=== PATIENT | male | born 1960 | race Caucasian/White ===

== ENCOUNTER → 2017-03-19 16:43 | Outpatient (CLI) | payer BC, SELFPAY ==
--- NOTE | 2017-03-19 16:49 | CT_ITS ---
STUDY: CT ABDOMEN AND PELVIS WITH CONTRAST REASON FOR EXAM: Male, 56 years old. LLQ pain, diverticulitis with antibiotics, ? Abscess RADIATION DOSAGE (If Supplied By Facility): CTDIvol = ( 17.24 ) mGy, DLP = ( 1178.76 ) mGycm TECHNIQUE: Transaxial images were obtained from the dome of the diaphragm to the symphysis pubis without oral contrast. 100ml ml of Isovue 300 contrast was administered. Sagittal and coronal images were reconstructed. Individualized dose optimization techniques were used for this CT. COMPARISON: 02.05.17 FINDINGS: The visualized lung bases are unremarkable. The visualized portions of the heart are within normal limits. Normal liver. Normal gallbladder and extrahepatic biliary system. Normal spleen. Normal pancreas. Normal bilateral adrenal glands. Normal right kidney. Normal left kidney. Normal visualized stomach. Normal small intestine. Stool throughout the colon. The appendix is visualized and appears normal. There are multiple diverticuli of the colon. There is diverticulosis but no radiographic signs for diverticulitis. There is diffuse atherosclerotic calcification of the abdominal aorta, without a demonstrated aneurysm. Normal inferior vena cava. Normal retroperitoneum. Normal urinary bladder. Normal visualized prostate gland. Normal abdominal wall. Normal osseous structures. CT/Abdomen/Pelvis WITH Contrast IMPRESSION: There are multiple diverticuli of the colon. There is diverticulosis but no radiographic signs for diverticulitis. There are calcifications of the abdominal aorta. This is consistent for atherosclerotic disease. There is no abdominal aortic aneurysm. Electronically Signed: Pietro Colón MD at 18:03 EST , Service support ,
== END ==
PROVIDERS: Family Provider Family Medicine; PCP Family Medicine; Visit Provider Family Medicine
DX: K57.92 Diverticulitis of intestine, part unspecified, without perforation or abscess without bleeding (principal)
CPT/HCPCS: 74177

== ENCOUNTER → 2018-05-26 06:49 | Outpatient (CLI) | payer BC, SELFPAY ==
[2018-05-19 13:06] VITALS: BMI 32.2
[2018-05-26 08:37] LABS: AST(SGOT) 24 U/L (15-37); Alanine Aminotransfer ALT/SGPT 30 U/L (16-61); Albumin, Serum 3.8 g/dL (3.2-5.0); Alkaline Phosphatase 84 U/L (45-117); Bilirubin, Direct 0.15 mg/dL (0.00-0.30); Cholesterol 176 mg/dL (200); Globulin 3.2 g/dL (2.2-4.2); High Density Lipoprotein 42 mg/dL; Triglycerides 122 mg/dL; Very Low Density Lipoprotein 24 mg/dL (5-40)
== END ==
PROVIDERS: Family Provider Family Medicine; PCP Family Medicine; Referring Provider Internal Medicine Cardiovascular Disease; Visit Provider Internal Medicine Cardiovascular Disease
DX: E78.00 Pure hypercholesterolemia, unspecified (principal)
CPT/HCPCS: 36415; 80061; 80076

== ENCOUNTER 2018-05-26 16:43 | Emergency (ER) | payer BC, SELFPAY ==
[2018-05-19 13:06] VITALS: BMI 32.2
[2018-05-26 16:43] VITALS: BP 125/78; PULSE 52; RESP 14; TEMP 36.9; O2SAT 98; BMI 33.0
--- NOTE | 2018-05-26 17:08 | CT_ITS ---
STUDY: CT ABDOMEN AND PELVIS WITHOUT CONTRAST REASON FOR EXAM: Male, 57 years old. Right abdominal pain, history of hypertension RADIATION DOSAGE (If Supplied By Facility): CTDIvol = ( 13.80 ) mGy, DLP = ( 806.92 ) mGycm TECHNIQUE: Transaxial images were obtained from the dome of the diaphragm to the symphysis pubis without oral contrast, and without intravenous contrast. Sagittal and coronal images were reconstructed. Individualized dose optimization techniques were used for this CT. COMPARISON: None. FINDINGS: This is a limited non-IV, nonoral contrast study. The visualized lung bases are unremarkable. The visualized portions of the heart are within normal limits. Normal liver. Normal gallbladder and extrahepatic biliary system. Normal spleen. Normal pancreas. Normal bilateral adrenal glands. Normal right kidney. Normal left kidney. Normal visualized stomach. Normal small intestine. There are multiple colonic diverticula. There is no evidence for colonic diverticulitis. There is scattered moderate colonic fecal load. The appendix is visualized and appears normal. Normal abdominal aorta. Normal inferior vena cava. Normal retroperitoneum. There are stable multilevel degenerative changes of the lumbar spine. There are stable benign bone islands within the hips.. There are Stable multilevel degenerative changes lumbar spine. There is mild distention of the bladder. 2 mm calculus within the base of the bladder. Normal abdominal wall. There are multilevel degenerative changes thoracic and lumbar spine. Surgical clips within the scrotal region. CT/Abdomen/Pelvis without Cont IMPRESSION: Limited non-IV, nonoral contrast study Mild distended bladder, 2 mm calculus within the base of the bladder most likely from recently passed ureteral calculus, primary bladder calculus is unlikely. There is no renal or ureteral calculi. There is no hydronephrosis Colonic diverticulosis, no evidence for diverticulitis. Multilevel spondylosis lumbar spine Surgical clips within the scrotal region Electronically Signed: Vazquez Daniel, at 18:08 EDT Tel , Service support ,
--- NOTE | 2018-05-26 17:09 | ED.VISSUMM ---
- ER Visit Summary Date of Service: 05/26/18 Chief Complaint: Right lower back pain History of Present Illness: The patient is a 57 M who had sudden onset of right lower back pain. He was out shopping when this pain started. It radiated to the right groin and right testicle. He states the pain is subsided but he still feels it in the right testicular area. He denies any trauma. He took no medications for this. He did feel slightly nauseous. He has no history of kidney stones in the past. He denies any urinary symptoms. He does have a history of prior back pain. Physical Examination: Vital signs reviewed. HEENT exam unremarkable. Heart is regular rate and rhythm without murmurs. Lungs are clear to auscultation. Abdomen is soft and nontender. His back is mildly tender in the right lumbar area. Extremities reveal no edema. Skin exam normal. Neurologic exam normal. Test Results: Urinalysis has trace blood. CT scan reveals a 2 mm kidney stone in the bladder Emergency Department Course and Treatment: Patient was able to urinate the stone out after being given Toradol. He states he feels much better without any symptoms. Patient will be discharged use NSAIDs for pain at home. He will follow-up with his PCP Treatment Plan: [] Disposition: Discharge Impression: Kidney stone, passed This note was generated with [employer] dictation software. It may contain incorrect words, spelling, and punctuation that were not noted in review of the chart prior to signing ED Disposition - Plan for ED Patient: Referrals: Gavin Pisano MD [Primary Care Provider] -
[2018-05-26] MEDS: Ketorolac 30 MG/ML Syringe IV (17:21)
--- NOTE | 2018-05-26 17:30 | ED.RN ---
PT ATTEMPTED TO URINATE WITHOUT RESULTS. GIVEN WATER. PT REPORTS PAIN IS GREATLY IMPROVED AFTER TORADOL
[2018-05-26 17:58] VITALS: BP 122/74; PULSE 73; RESP 14; O2SAT 97
[2018-05-26 18:22] LABS: Bacteria 0 SEEN /hpf (None Seen); Squamous Epithelial Cells - UA 0 SEEN /hpf (0-5)
[2018-05-26 18:40] LABS: Color, Urine Yellow (Yellow); Glucose, Dipstick Normal (Normal); Ketone-Dipstick Negative (Negative); Leukocyte Esterase-Dipstick Negative /ul (Negative); Nitrite-Dipstick Negative (Negative); Occult Blood-Urine 50 /ul (Negative); Protein-Dipstick 15 mg/dl (Negative); Specific Gravity, Urine 1.025 (1.002-1.030); Urine Bilirubin Dipstick Negative (Negative); Urine Clarity Clear (Clear); Urine Urobilinogen 1 mg/dl (Normal)
--- NOTE | 2018-05-26 18:48 | ED.DEP ---
ED Disposition - Plan for ED Patient: Disposition: Home or Assisted Living Instructions: ED Stone Renal Passed Referrals: Gavin Pisano MD [Primary Care Provider] -
[2018-05-26 19:11] VITALS: BP 175/88; PULSE 54; RESP 18; O2SAT 97
[2018-05-26 19:29] LABS: Mucous, Urine RARE /hpf (<or=2+); Red Blood Cells-Urine 5-10 SEEN /hpf (0-5)
== END 2018-05-26 19:12 | disposition home or self-care (01) ==
PROVIDERS: Emergency Provider Emergency Medicine; Family Provider Family Medicine; PCP Family Medicine
DX: N20.0 Calculus of kidney (principal); I10 Essential (primary) hypertension; Z79.82 Long term (current) use of aspirin; Z79.899 Other long term (current) drug therapy
CPT/HCPCS: 74176; 81001; 96374; 99282; A4216

== ENCOUNTER → 2018-06-08 06:34 | Outpatient (CLI) | payer BC, SELFPAY ==
[2018-05-19 13:06] VITALS: BMI 32.2
[2018-05-26 16:43] VITALS: BMI 33.0
--- NOTE | 2018-06-08 06:38 | ECHOCS_ITS ---
Reason For Study: MURMUR Procedure This was a 2D Doppler, Color Flow transthoracic echocardiogram. The study was technically difficult. Contrast injection was performed. Exam performed in department. Left Ventricle Normal LV size. Left ventricular systolic function is normal. The estimated ejection fraction is 60 %. No evidence for diastolic dysfunction. No regional wall motion abnormalities noted. Right Ventricle Normal RV size. Normal systolic function. Atria The left atrium is mildly enlarged. Normal right atrium. No doppler evidence for ASD. Bubble contrast study negative for right to left interatrial shunt. Mitral Valve There is mild mitral annular calcification. Anterior leaflet diffuse mitral valve thickening. Trivial mitral valve insufficiency. Tricuspid Valve Normal tricuspid valve. Mild tricuspid valve insufficiency. Right ventricular systolic pressure estimated to be 27 mmHg. Aortic Valve Trisinus/trileaflet aortic valve. Mild focal aortic valve calcification. Mild aortic stenosis. Pulmonic Valve The pulmonic valve is not well visualized. Trivial pulmonic valve insufficiency. Great Vessels Normal sized aortic root. Pericardium/Pleural No pericardial effusion. Medication Diluted definity 3.5ml given slow IV push to enhance endocardial definition. Performed a rapid injection of agitated mix of 9 cc saline and 1cc air to assess for atrial septal defect. MMode/2D Measurements & Calculations LVIDd: 5.5 cm IVSd: 0.95 cm LVOT diam: 2.1 cm LVIDs: 3.8 cm LVPWd: 0.98 cm RVDd: 4.5 cm FS: 31.2 % LVOT area: 3.3 cm2 Ao root diam: 3.3 cm LAV(MOD-bp): 60.8 ml LVAd ap4: 41.3 cm2 LAV(MOD-bp) Indexed: 27.4 ml/m2 EDV(MOD-sp4): 155.2 ml LAV(MOD-sp2): 64.0 ml EDV(sp4-el): 161.5 ml LAV(MOD-sp4): 50.0 ml LVAs ap4: 23.4 cm2 ESV(MOD-sp4): 62.7 ml ESV(sp4-el): 64.7 ml EF(MOD-sp4): 59.6 % EF(sp4-el): 59.9 % SV(MOD-sp4): 92.5 ml SV(sp4-el): 96.8 ml LA A4 area: 19.1 cm2 LA dimension(2D): 3.6 cm RA A4 area: 15.7 cm2 Time Measurements MV dec time: 0.23 sec Doppler Measurements & Calculations MV E max scottie: 81.6 cm/sec Lat Peak E' Scottie: 10.7 cm/sec Med Peak E' Scottie: 7.7 cm/sec MV A max scottie: 74.1 cm/sec E/E' lat: 7.6 E/E' med: 10.7 MV E/A: 1.1 Ao V2 max: 274.8 cm/sec AI max scottie: 501.1 cm/sec LV V1 max: 120.9 cm/sec Ao max P.2 mmHg AI max P.4 mmHg LV V1 max P.8 mmHg Ao V2 mean: 191.0 cm/sec AI dec slope: 173.2 cm/sec2 LV V1 mean P.1 mmHg Ao mean P.2 mmHg AI P1/2t: 847.6 msec LV V1 mean: 81.3 cm/sec Ao V2 VTI: 58.2 cm LV V1 VTI: 29.0 cm GINNY(I,D): 1.7 cm2 GINNY(V,D): 1.5 cm2 SV(LVOT): 96.2 ml PA V2 max: 130.1 cm/sec TR max scottie: 243.3 cm/sec TR max P.7 mmHg Interpretation Summary The study was technically difficult. Contrast injection was performed. Left ventricular systolic function is normal. The estimated ejection fraction is 60 %. The left atrium is mildly enlarged. There is mild mitral annular calcification. Anterior leaflet diffuse mitral valve thickening. Trivial mitral valve insufficiency. Mild tricuspid valve insufficiency. Mild aortic stenosis. Trivial pulmonic valve insufficiency. Right ventricular systolic pressure estimated to be 27 mmHg. No evidence for diastolic dysfunction. Ordering Physician: Eugenio Amaro Referring Physician: CHARLY GALLO Performed By: Darline Whyte RDCS
--- NOTE | 2018-06-08 10:17 | STRESSREP ---
Stress Test Report Date: 06-08-18 Procedure: Exercise tolerance test/imaging study Indications: Fatigue; cardiac dysrhythmia/conduction system abnormality Consent: Per the patient Procedure: The patient exercised on a Dylan protocol for 9 minutes completing stage III achieving a peak heart rate of 139 bpm (84 % predicted maximal heart rate) with a peak blood pressure 222/70 mmHg and a peak MET capacity of 10 METs. The baseline ECG demonstrated normal sinus rhythm. The peak exercise ECG demonstrated beat to beat ST segment variability with approximately 1 mm of horizontal/upsloping ST segment depression in leads II, aVF, and V4 through V6 with resolution towards baseline beginning less than 1 minute in recovery. There were rare PVCs during exercise. The functional capacity was considered good. There was no complaint of chest discomfort during exercise or recovery. The examination was discontinued secondary to dyspnea. Impression: 1. Technically adequate (percent predicted maximal heart rate greater than 85%) exercise tolerance test 2. Peak exercise ECG demonstrated [id number] ST segment variability with approximately 1 mm of horizontal/upsloping ST segment depression in leads II, aVF, and V4 through V6 with resolution towards baseline beginning less than 1 minute in recovery 3. There were rare PVCs during exercise 4. Nuclear images pending Myocardial perfusion imaging study: Technique: The patient was injected with 14.5 mCi of technetium 99m Cardiolite and subsequently rest SPECT Cardiolite nuclear imaging was obtained in the horizontal long, vertical long, and short axis views. The patient exercised on a Dylan protocol for 9 minutes completing stage III achieving a peak heart rate of 139 bpm (84 % predicted maximal heart rate) with a peak blood pressure 222/70 mmHg and a peak MET capacity of 10 METs. The patient was injected with 43.8 mCi of technetium 99m Cardiolite and subsequently stress SPECT Cardiolite nuclear imaging was obtained in the horizontal long, vertical long, and short axis views. A gated Cardiolite study at peak stress was obtained. Interpretation: Rest and stress SPECT Cardiolite nuclear imaging status post realignment, normalization, and attenuation correction, demonstrates the appearance of relative uniform tracer uptake and myocardial perfusion appearing within normal limits. There is end systolic thickening and brightening. The gated Cardiolite study demonstrates myocardial thickening and inward wall motion. The reported LVEF is 65 %. Impression: 1. Rest and stress SPECT Cardiolite nuclear imaging demonstrate relative uniform tracer uptake and myocardial perfusion appearing within normal limits. 2. The gated Cardiolite study reports an LVEF of 65 %. This note was generated with [employer] software. It may contain incorrect words, spelling, and punctuation that were not noted in checking the note before signing.
--- NOTE | 2018-06-08 10:21 | STRESSREP_ITS ---
Stress Test Report Date: 06-08-18 Procedure: Exercise tolerance test/imaging study Indications: Fatigue; cardiac dysrhythmia/conduction system abnormality Consent: Per the patient Procedure: The patient exercised on a Dylan protocol for 9 minutes completing stage III achieving a peak heart rate of 139 bpm (84 % predicted maximal heart rate) with a peak blood pressure 222/70 mmHg and a peak MET capacity of 10 METs. The baseline ECG demonstrated normal sinus rhythm. The peak exercise ECG demonstrated beat to beat ST segment variability with approximately 1 mm of horizontal/upsloping ST segment depression in leads II, aVF, and V4 through V6 with resolution towards baseline beginning less than 1 minute in recovery. There were rare PVCs during exercise. The functional capacity was considered good. There was no complaint of chest discomfort during exercise or recovery. The examination was discontinued secondary to dyspnea. Impression: 1. Technically adequate (percent predicted maximal heart rate greater than 85%) exercise tolerance test 2. Peak exercise ECG demonstrated [id number] ST segment variability with approximately 1 mm of horizontal/upsloping ST segment depression in leads II, aVF, and V4 through V6 with resolution towards baseline beginning less than 1 minute in recovery 3. There were rare PVCs during exercise 4. Nuclear images pending Myocardial perfusion imaging study: Technique: The patient was injected with 14.5 mCi of technetium 99m Cardiolite and subsequently rest SPECT Cardiolite nuclear imaging was obtained in the horizontal long, vertical long, and short axis views. The patient exercised on a Dylan protocol for 9 minutes completing stage III achieving a peak heart rate of 139 bpm (84 % predicted maximal heart rate) with a peak blood pressure 222/70 mmHg and a peak MET capacity of 10 METs. The patient was injected with 43.8 mCi of technetium 99m Cardiolite and subsequently stress SPECT Cardiolite nuclear imaging was obtained in the horizontal long, vertical long, and short axis views. A gated Cardiolite study at peak stress was obtained. Interpretation: Rest and stress SPECT Cardiolite nuclear imaging status post realignment, normalization, and attenuation correction, demonstrates the appearance of relative uniform tracer uptake and myocardial perfusion appearing within normal limits. There is end systolic thickening and brightening. The gated Cardiolite study demonstrates myocardial thickening and inward wall motion. The reported LVEF is 65 %. Impression: 1. Rest and stress SPECT Cardiolite nuclear imaging demonstrate relative uniform tracer uptake and myocardial perfusion appearing within normal limits. 2. The gated Cardiolite study reports an LVEF of 65 %. This note was generated with [employer]out Studiosation software. It may contain incorrect words, spelling, and punctuation that were not noted in checking the note before signing.
== END ==
PROVIDERS: Family Provider Family Medicine; PCP Family Medicine; Referring Provider Internal Medicine Cardiovascular Disease; Visit Provider Internal Medicine Cardiovascular Disease
DX: I10 Essential (primary) hypertension (principal); I34.1 Nonrheumatic mitral (valve) prolapse; I35.9 Nonrheumatic aortic valve disorder, unspecified; I44.1 Atrioventricular block, second degree; I49.3 Ventricular premature depolarization; E78.00 Pure hypercholesterolemia, unspecified; R53.83 Other fatigue
CPT/HCPCS: 78452; 93017; 93306; A9500; Q9957; A4216; C8929

== ENCOUNTER → 2019-02-06 08:38 | Outpatient (CLI) | payer BC, SELFPAY ==
--- NOTE | 2019-02-06 08:55 | RAD_ITS ---
STUDY: X-RAY - LUMBAR SPINE REASON FOR EXAM: Male, 58 years old. right hip pain since pt was 19 TECHNIQUE: 5 view(s) of the lumbar spine were obtained. COMPARISON: 04/30/2016 FINDINGS: Normal lumbar lordosis. There is no substantial scoliosis. There is a normal alignment of the vertebrae. Normal vertebral bodies and endplates. Normal disc space heights. The soft tissue structures are unremarkable. RAD/L/S Spine Min 4 Views IMPRESSION: Normal x-ray examination of the lumbar spine. Electronically Signed: Bry Vázquez MD at 13:52 EST Tel , Service support ,
[2019-02-06 10:09] LABS: Absolute Lymphocyte Count 1.25 X10^3/uL (0.83-4.51); Absolute Neutrophil Count 3.1 X10^3/uL (2.0-7.7); Basophil# 0.02 X10^3/uL; Basophil% 0.4 % (0-1); Eosinophil# 0.32 X10^3/uL; Eosinophils% 6.4 % (0-5); Hematocrit 41.9 % (40-54); Hemoglobin 14.2 g/dL (13.0-16.5); Lymphocyte # 1.25 X10^3/ul (4.0); Lymphocyte % 25.1 % (19-41); Mean Corp Hgb Conc 33.9 g/dL (32-36); Mean Corpuscular Hgb 30.5 pg (27.0-32.0); Mean Corpuscular Volume 90.1 fL (80-94); Mean Platelet Vol. 12.2 fl (6.2-12.0); Monocyte# 0.25 X10^3/uL; NRBC Flagged by Analyzer 0 % (0-5); Neutrophil # 3.11 X10^3/uL (2.7-7.7); Neutrophil % 62.5 % (47-70); Platelet Count 185 K/mm3 (150-450); RBC Distribution Width CV 12.1 % (11.6-14.6); RBC Distribution Width SD 39.7 fl (35.1-43.9); Red Blood Count 4.65 M/mm3 (4.6-6.2)
[2019-02-06 10:32] LABS: Ferritin 112 ng/mL (26-388); T4 Free Direct 0.87 ng/dL (0.76-1.46); Thyroid Stim Hormone (TSH) 1.53 uIU/mL (0.358-3.74)
[2019-02-07 14:38] LABS: ANTINUCLEAR ANTIBODIES DIRECT Negative (Negative)
== END ==
PROVIDERS: Family Provider Family Medicine; PCP Family Medicine; Referring Provider Family Medicine; Visit Provider Family Medicine
DX: M54.5 Low back pain (principal); G89.29 Other chronic pain; R19.7 Diarrhea, unspecified
CPT/HCPCS: 36415; 72110; 82728; 84439; 84443; 85025; 86038

== ENCOUNTER → 2019-02-13 08:56 | Outpatient (CLI) | payer BC, SELFPAY ==
--- NOTE | 2019-02-13 09:00 | RAD_ITS ---
HISTORY: right hip pain since he was 19, getting worse ADDITIONAL HISTORY: None provided. TECHNIQUE: Right hip 2 views with AP pelvis Number of images including paperwork: 3 COMPARISON: Lumbar spine 02/06/2019. CT abdomen and pelvis 05/26/2018 FINDINGS: BONES: No acute fracture. JOINTS: No subluxation. Facet degenerative changes at L5-S1. Mild degenerative changes of the sacroiliac joints.. SOFT TISSUES: No distinct foreign body. Scrotal surgical clips. RAD/HIP, UNI W/ Pelvis 2-3 Views IMPRESSION: Degenerative changes without acute osseous abnormality. at 2333 Reported and signed by: Alysa Turner MD Electronically Signed: Alysa Turner MD at 23:33 EST Tel , Service support ,
[2019-02-14 16:21] LABS: Fats, Neutral Normal (.); Fats, Total Normal (.)
== END ==
PROVIDERS: Family Provider Family Medicine; PCP Family Medicine; Referring Provider Family Medicine; Visit Provider Family Medicine
DX: M25.551 Pain in right hip (principal); R19.7 Diarrhea, unspecified
CPT/HCPCS: 73502; 82705; 83986; 87506

== ENCOUNTER 2019-03-22 14:30 | Outpatient (RCR) | payer BC, SELFPAY ==
--- NOTE | 2019-02-28 13:23 | HP.PTEVAL ---
Patient's Visit Information KERRI MARTINEZ is a 58 year old M referred to Physical Therapy by Gavin Pisano MD with a diagnosis of RIGHT HIP PAIN/LBP. Date of Evaluation: 02/27/19 Physical Therapist: Anu Agustin PT, Cert MDT - Visit Plan Frequency: 2-3x /Week Duration: 4-6 Weeks Plan: LOW BACK AND HIP MODALITIES NEEDED. RIGHT HIP AND LE ROM AND FOAM ROLLING INCLUDING INSTRUCTION IN RIGHT HIP IR AND ER STRETCHING TOLERATED. POSTURE CORRECTION/STRENGTHENING, INSTRUCTION IN APPROPRIATE BODY MECHANICS AND ACTIVITY MODIFICATIONS. DLS STARTING WITH A NEUTRAL SPINE PROGRESSING ROM TOLERATED. VINNIE LE ROM, STRETCHING AND STRENGTHENING. HEP INSTRUCTION. 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 HEAVY BENDING, LIFTING AND TWISTING. NOT OFF WORK FOR THIS. Disability: NO. Present symptoms: RIGHT LOW BACK PAIN. RIGHT BUTTOCK, RIGHT THIGH AND TOP OF THE CALF PAIN AND RIGHT ANKLE PAIN. INTERMITTENT RIGHT LE TINGLING. NO FOOT OR TOE SX'S. Present since: CHRONIC. Pain Scale: WORST 7/10, LEAST 2/10. Currently: 4/10. WORSENING. Commenced as a result of: NO APPARENT REASON. Symptoms at onset: RIGHT LOW BACK. Worse: SITTING, LYING DOWN. Better: BEING UP AND MOVING. Disturbed sleep: YES. Previous history/Previous treatment: LONG HISTORY OF CHIROPRACTIC TREATMENTS OFF AND ON NEEDED. NO PHYSICAL THERAPY. NO SURGERY. NO PAIN MGMT OR SILVESTRE'S. Coughing/sneezing/straining: NEGATIVE. Gait: NORMAL. Difficulty initiating urinatin: NO. Accidents: NO. Unexplained weight loss: NO. Imaging: RECENT HIP X-RAY - MINOR OSTEOARTHRITIS. ALSO HAD LOW BACK X-RAY. PMH: UNREMARKABLE. Recent major surgery: VINNIE ROTATOR CUFF REPAIRS. - Objective Sitting/Standing Posture: FAIR. Lordosis: NORMAL. Active Correction of posture: NE. Other Observations: INDEP GAIT AND TRANSFERS. Motor deficit: VINNIE LE'S 5/5 WITH MMT'ING. Sensory deficit: NO. ROM deficit: TIGHT VINNIE HS'S AND GASTROC SOLEUS COMPLEX'S. Dural Signs: NEGATIVE VINNIE LE'S. Lumbar mvmt loss: flex - NIL. ext - MOD. R SG - MOD. L SG - MOD. PATIENT DENIES PAIN WITH LUMBAR ROM TESTING ALL PLANES. Core strength: FAIR. Palpation: NO ACUTE BACK OR HIP TENDERNESS. OTHER: POSITIVE RIGHT ANKIT TESTING. LIMITED RIGHT HIP IR AND ER COMPARED TO LEFT. TREATMENT: NEURO RE-ED - INTRO TO PROPER POSTURE CONTROL, BODY MECHANICS AND APPROPRIATE ACTIVITY MODIFICATIONS. - Goals Goal 1:: DECREASE C/O RIGHT LOW BACK, HIP AND LE SX'S. Goal Time Frame: 4-6 Weeks Goal 2:: IMPROVE SITTING, LYING AND SLEEP FUNCTION Goal Time Frame: 4-6 Weeks Goal 3:: INSTRUCT IN PROPHYLAXIS Goal Time Frame: 4-6 Weeks - Rehabilitation Potential Rehabilitation Potential: Fair - Anticipated Interventions Patient/Client Instruction: Educate patient on: Condition, Plan of Care, Risk Factors, Benefits of Fitness Program For the Purpose of:: To improve self management Therapeutic Exercise to Include: Strength training, Body mechanics, Postural training, Flexibilty training, Neuromotor development, Dynamic Lumbar Stabilization For the Purpose of:: To decrease pain, To increase ROM, To improve muscle performance and motor function, To increase tolerance to activity/condition/position, To improve ability of physical actions for home/community/work/leisure TENS: Yes IF ES: Yes Cryotherapy (ice pack, ice massage): Yes Thermo therapy (hot pack): Yes Ultrasound (thermal/non thermal): Yes For the Purpose of:: To decrease pain, To improve nutrient delivery to tissue Thank you for the opportunity to evaluate your patient. For Medicare and Medicare HMO plans, please review the plan of care and approve it. It will need to be FAXED BACK to us at [phone] for Medicare purposes. For Medicare only, by signing this I certify the plan of care. Please let me know if there are questions or concerns regarding this plan of care. Physician Signature: Date:
--- NOTE | 2019-03-22 15:55 | HP.PTDCSUM ---
HP - PT D/C Summary It has been my pleasure to treat KERRI MARTINEZ under orders from Gavin Pisano MD, for the diagnosis of RIGHT HIP PAIN/LBP for a total of 9 visit(s). Discharge Date: Please see the following information for a summary of their discharge status. - Subjective Subjective: PATIENT REPORTS HE IS WORSE. MORE SHARP PAINS DOWN HIS LEG. MORE BACK PAIN. MORE DIFFICULT TO GET COMFORTABLE. USE TO GET RELIEF IN STANDING AND NOW HE DOESN'T. WALKING IS OK. TEMPORARY RELIEF WITH PT TREATMENTS FOR A FEW HOURS. WORSE OVER-ALL. CORE FEELS STRONGER THOUGH. PATIENT REPORTS HE FEELS LIKE HE IS DRAGGING HIS RIGHT LEG SOMETIMES. - Pain Back Pain Intensity (Out of 10): 6 - Overall Improvement % Improvement: 0 - Objective Objective/Function: PATIENT WAS SEEN TODAY FOR RE-ASSESSMENT OF PROGRESS TOWARD THE SET PT GOALS AND THE NEED FOR FURTHER PHYSICAL THERAPY VS READINESS FOR DISCHARGE. PATIENT IS NOT IMPROVING AND ACTUALLY HAVING MORE BACK AND RIGHT LE PAIN. UPON EXAM TODAY: Lumbar mvmt loss: flex - MIN. ext - MOD. R SG - MOD. L SG - MIN. PATIENT C/O INCREASED RIGHT LBP WITH LUMBAR ROM TESTING ALL PLANES ESPECIALLY RIGHT SG. Core strength: FAIR. Palpation: NO ACUTE BACK TENDERNESS. MILD RIGHT LATERAL HIP TENDERNESS. OTHER: POSITIVE RIGHT ANKIT TESTING. LIMITED RIGHT HIP IR AND ER COMPARED TO LEFT. POSITIVE RIGHT LE DURAL TEST. VINNIE LE STRENGTH 5/5 WITH MMT'ING EXCEPT RIGHT HIP 4/5. FURTHER HEP INSTRUCTION GIVEN TODAY FOR GENTLE RIGHT HIP INTERNAL AND EXTERNAL SELF STRETCHING IN SITTING AND SUPINE. WRITTEN HEP PROVIDED. - Goals Goal 1:: DECREASE C/O RIGHT LOW BACK, HIP AND LE SX'S. Goal Progress: Not Progressing Goal 2:: IMPROVE SITTING, LYING AND SLEEP FUNCTION Goal Progress: Not Progressing Goal 3:: INSTRUCT IN PROPHYLAXIS Goal Progress: Not Progressing - Plan Plan: D/C DUE TO LACK OF PROGRESS. REFERRED PATIENT BACK TO HIS PHYSICIAN. PATIENT AGREEABLE. - D/C Information If there are questions or concerns regarding this patient's physical therapy, please feel free to call me at [phone]. Thank you for the referral of this patient. Sincerely, Anu Agustin, PT, Cert MDT
--- NOTE | 2019-04-27 12:25 | HP.PTDCSUM_ITS ---
HP - PT D/C Summary It has been my pleasure to treat KERRI MARTINEZ referred by Gavin Pisano MD, with the diagnosis of RIGHT HIP PAIN/LBP for a total of 10 visit(s). Discharge Date: Please see the following information for a summary of their discharge status. - Subjective Subjective: PATIENT REPORTS THE MRI SHOWED WEAKENING OF THE TENDONS AROUND HIS RIGHT HIP. STATES MRI ALSO SHOWED SLIGHTLY MORE WEIGHT BEARING ON RIGHT LE SO NOW WEARING RIGHT HEEL LIFT STARTING LAST WEDNESDAY WITH BENEFIT. REC'D CORTISONE SHOT RIGHT SI JOINT 2 DAYS AGO 04/25/19 - NO PAIN NOW. 100% IMPROVEMENT COMPARED TO BEFORE THE SHOT. SOME TIGHTNESS BUT NO PAIN DOWN THE BACK OF HIS LEG NOW. PATIENT REPORTS HE RESUMED HIS HEP FROM PT YESTERDAY WITH NO PAIN (TIGHTNESS ONLY). PATIENT REPORTS MORE THERAPY WAS ORDERED LAST MONTH BUT HE WANTED TO HAVE THE INJECTION BEFORE RETURNING TO PT. - Pain Back Pain Intensity (Out of 10): 6 - Overall Improvement % Improvement: 100 - Objective Objective/Function: PATIENT WAS SEEN TODAY FOR RE-ASSESSMENT OF PROGRESS TOWARD THE SET PT GOALS AND THE NEED FOR FURTHER PHYSICAL THERAPY VS READINESS FOR DISCHARGE. UPON EXAM TODAY: ALL GOALS ARE MET. HE HAS HAD NORMALIZATION OF HIS STRENGTH AND ROM SINCE INJECTION AND HE IS INDEP WITH A HEP. UPON EXAM TODAY: Lumbar mvmt loss: flex - NIL. ext - MIN. R SG - MIN. L SG - MIN. PATIENT DENIES PAIN WITH LUMBAR ROM TESTING ALL PLANES. Core strength: FAIR. VINNIE LE STRENGTH 5/5 WITH MMT'ING. VINNIE LE ANKIT AND DURAL TESTS ARE NEGATIVE. PATIENT NOW HAS RIGHT HIP ROM (INCLUDING IR AND ER) WFL AND NO PAIN WITH TESTIN. HE IS INDEP WITH A HEP AND APPROPRIATE FOR DISCHARGE TO HEP AND PHYSICIAN FOLLOW UP NEEDED AT THIS TIME. PATIENT [facility] - Goals Goal 1:: DECREASE C/O RIGHT LOW BACK, HIP AND LE SX'S. Goal Progress: Goal Met Goal 2:: IMPROVE SITTING, LYING AND SLEEP FUNCTION Goal Progress: Goal Met Goal 3:: INSTRUCT IN PROPHYLAXIS Goal Progress: Goal Met - Plan Plan: D/C TO HEP. PATIENT IS AGREEABLE. - D/C Information If there are questions or concerns regarding this patient's physical therapy, please feel free to call me at [phone]. Thank you for the referral of this patient. Sincerely, Anu Agustin, PT, Cert MDT
== END 2019-03-22 19:00 | disposition home or self-care (01) ==
LOC: PT 14:30
PROVIDERS: Family Provider Family Medicine; PCP Family Medicine; Referring Provider Family Medicine; Visit Provider Family Medicine
DX: M25.551 Pain in right hip (principal); M54.5 Low back pain
CPT/HCPCS: 97014; 97110; 97112; 97162; 97164; 97530; G0283

== ENCOUNTER → 2019-04-06 09:19 | Outpatient (CLI) | payer BC, SELFPAY ==
--- NOTE | 2019-04-06 09:27 | MRI_ITS ---
STUDY: MRI RIGHT HIP REASON FOR EXAM: Male, 58 years old. C/O RIGHT HIP/GROIN PAIN RADIATING DOWN LEG TECHNIQUE: Standardized fat and water weighted pulse sequences were obtained in all 3 orthogonal planes. COMPARISON: X-ray 02/13/2019 FINDINGS: Normal hip joint without articular joint space narrowing. Normal acetabulum. Normal labrum. Normal femoral head. Normal femoral neck and intratrochanteric region. Mild gluteal tendinosis and peritendinitis. There is no trochanteric, iliopsoas or iliopectineal bursitis. Normal superior and inferior pubic rami. Normal pubic symphysis. Normal ischial tuberosity. Normal origin of the hamstring tendons. Normal visualized iliac wing, sacroiliac joint, and sacral ala. Normal visualized soft tissue structures of the pelvis. MRI/Lower Ext Joint Only (Routine) IMPRESSION: Mild gluteal tendinosis and peritendinitis. Electronically Signed: Bry Vázquez MD at 14:22 EST Tel , Service support ,
--- NOTE | 2019-04-06 09:27 | MRI_ITS ---
STUDY: MRI LUMBAR SPINE WITHOUT CONTRAST REASON FOR EXAM: Male, 58 years old. DDD, LBP, RIGHT HIP PAIN TECHNIQUE: Standardized fat and water weighted pulse sequences were obtained in the sagittal and axial planes. COMPARISON: X-ray 02/06/2019 FINDINGS: T12-L1: Normal endplates. Normal disc height, hydration and morphology. Normal bilateral facet joints. Normal central canal and bilateral lateral recesses. Normal bilateral intervertebral neural foramina. Normal lumbar lordosis. There is no substantial scoliosis. Normal conus medullaris that terminates at the L1. L1-2: Normal endplates. Normal disc height, hydration and morphology. Normal bilateral facet joints. Normal central canal and bilateral lateral recesses. Normal bilateral intervertebral neural foramina. L2-3: Normal endplates. Normal disc height, hydration and morphology. Normal bilateral facet joints. Normal central canal and bilateral lateral recesses. Normal bilateral intervertebral neural foramina. L3-4: Normal endplates. Normal disc height, hydration and morphology. Normal bilateral facet joints. Normal central canal and bilateral lateral recesses. Normal bilateral intervertebral neural foramina. L4-5: Some disc desiccation but no disc protrusion, spinal stenosis, or neural foraminal stenosis. L5-S1: Normal endplates. Normal disc height, hydration and morphology. Normal bilateral facet joints. Normal central canal and bilateral lateral recesses. Normal bilateral intervertebral neural foramina. Normal visualized sacral ala. Normal visualized paraspinous soft tissue structures. MRI/Spine Lumbar (Routine) IMPRESSION: Normal unenhanced MR examination of the lumbar spine. Electronically Signed: Bry Vázquez MD at 14:24 EST Tel , Service support ,
== END ==
PROVIDERS: PCP Family Medicine; Referring Provider Family Medicine; Visit Provider Family Medicine
DX: M16.11 Unilateral primary osteoarthritis, right hip (principal); M51.36 Other intervertebral disc degeneration, lumbar region
CPT/HCPCS: 72148; 73721

== ENCOUNTER 2019-04-27 11:29 | Outpatient (RCR) | payer BC, SELFPAY ==
[2019-04-14 11:17] VITALS: BMI 33.0
== END 2019-04-27 11:56 | disposition home or self-care (01) ==
LOC: PT 11:29
PROVIDERS: PCP Family Medicine; Referring Provider Orthopaedic Surgery; Visit Provider Orthopaedic Surgery
DX: M46.1 Sacroiliitis, not elsewhere classified (principal); M54.30 Sciatica, unspecified side; M76.01 Gluteal tendinitis, right hip

== ENCOUNTER 2019-06-29 11:30 | Outpatient (RCR) | payer BC, SELFPAY ==
[2019-05-31 14:42] VITALS: BMI 30.7
--- NOTE | 2019-06-20 09:50 | HP.OTEVAL_ITS ---
Patient's Visit Information KERRI MARTINEZ is a 59 year old M, referred to Occupational Therapy by Dr. Gavin Pisano MD, with a diagnosis of Rt carpal tunnel hand weakness. Date of Evaluation: 06/20/19 Occupational Therapist: Valeria Ley - Subjective Pt seen for initial occupational therpay evaluation for R carpal tunnel and hand weakness. Pt states this has been going on for quite a while. He has numbness/tingling in R hand and increased pain with activities. Pt works at [employer]. Pt works doing repetitive work. R hand dominent. Has nerve conduction test scheduled for [facility] in a few weeks. Pt completing all BADLs/IADL tasks and still working but does has increased pain with all movement. States has not tried icing or heat to hand. - Pain R hand 6 Pain Intensity Range: 0, 8 - Objective increased pain with movement R hand/wrist, limited AROM R hand. 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 Pt will progress w/ R tripod pinch strength by 10# to assist w/ BADL/IADL tasks independently by d/c from OT Goal:: Pt will progress w/ AROM R wrist flexion by 10' to increase indep w/ hobbies by d/c from OT services Goal:: Pt will demo no pain greater than 1/10 with movement of R wrist/hand by d/c from OT services Goal:: Pt will be educated on joint protection R wrist/hand with good understanding and demo 100%x Goal:: Pt will be educated on R UE HEP with good understanding and demo 100%x - Rehabilitation General Assessment: Pt seen for initial occupational therapy evaluation for R capral tunnel and hand weakness. Pt states this has been going on for quite a while. He has numbness/tingling in R hand and increased pain with activities. Pt works at [employer]. Pt works doing repetitive work. R hand dominent. Pt demo decreased R hand strength and ROM and increased pain R hand/wrist all indicating a need for skilled OT interventions to increase R hand strength/ROM, decrease pain, educate on joint protection, R UE HEP 1-2x/wk x 4wks Rehabilitation Potential: Good - Anticipated Interventions A/AAROM/PROM, Strengthening, Edema Control, Massage, Triggerpoint Release, Modalities, Orthoses, Joint Protection/Energy Conservation, Ergonomic Education, Education re Diagnosis, Education re Self Massage Techniques, Home Program - Visit Plan Frequency: 1-2x /Week Duration: 4 Weeks General Plan: decrease pain R wrist/hand, increase R hand strength and AROM, educate on HEP and joint protection TEXT: Thank you for the opportunity to evaluate your patient. For Medicare and Medicare HMO plans, please review the plan of care and approve it. It will need to be FAXED BACK to us at [phone] for Medicare purposes. Please let me know if there are questions or concerns regarding this plan of care. Physician Signature: Date:
--- NOTE | 2019-07-04 14:46 | HP.OT.NRP ---
KERRI MARTINEZ was seen in my office for initial evaluation on 06/20/19. The following Plan of Care was established for this patient: Plan: Pt called today states to go ahead and d/c him from therapy as he is going to have sx. Anticipated Interventions: A/AAROM/PROM, Strengthening, Edema Control, Massage, Triggerpoint Release, Modalities, Orthoses, Joint Protection/Energy Conservation, Ergonomic Education, Education re Diagnosis, Education re Self Massage Techniques, Home Program This patient was last seen in our office . Pertinent comments regarding their Occupational therapy will appear below: At this point I will be discontinuing this patient from occupational therapy. I would be happy to see this patient again in the future if found appropriate by the physician. Thank you! Mansi Hernandez, OTR/L, CHT
== END 2019-06-29 19:00 | disposition home or self-care (01) ==
LOC: OT 11:30
PROVIDERS: PCP Family Medicine; Referring Provider Family Medicine; Visit Provider Family Medicine
DX: G56.01 Carpal tunnel syndrome, right upper limb (principal); R29.898 Other symptoms and signs involving the musculoskeletal system
CPT/HCPCS: 97035; 97140; 97165; 97166

== ENCOUNTER → 2019-07-25 07:50 | Outpatient (CLI) | payer BC, SELFPAY ==
[2019-05-31 14:42] VITALS: BMI 30.7
[2019-07-19 10:50] VITALS: BMI 31.1
--- NOTE | 2019-07-25 07:51 | ECHOCS_ITS ---
Reason For Study: ARRHYTHMIA Procedure This was a 2D Doppler, Color Flow transthoracic echocardiogram. The study was technically difficult. Due to body habitus. Contrast injection was performed. Left Ventricle Normal LV size. Left ventricular systolic function is normal. The estimated ejection fraction is 65 %. There is evidence of diastolic dysfunction. No regional wall motion abnormalities noted. Right Ventricle Normal RV size. Normal systolic function. Atria The left atrium is mildly enlarged. Normal right atrium. No doppler evidence for ASD. Mitral Valve There is no mitral annular calcification. Mild focal mitral valve calcification of the anterior leaflet. Trivial mitral valve insufficiency. Tricuspid Valve Normal tricuspid valve. Trivial tricuspid valve insufficiency. Right ventricular systolic pressure estimated to be 23 mmHg. Aortic Valve Trisinus/trileaflet aortic valve. Moderate focal aortic valve calcification. Aortic valve sclerosis/mild aortic valve stenosis. Trivial aortic valve insufficiency. Pulmonic Valve The pulmonic valve is not well visualized. Great Vessels The aortic root is not well visualized. Pericardium/Pleural No pericardial effusion. Medication 22 gauge I.V. with prn adaptor inserted into left arm. Diluted definity 2.0ml given slow IV push to enhance endocardial definition. MMode/2D Measurements & Calculations LVIDd: 4.8 cm IVSd: 1.2 cm LVOT diam: 2.3 cm LVIDs: 3.1 cm LVPWd: 1.2 cm RVDd: 4.2 cm FS: 34.6 % LVOT area: 4.2 cm2 LAV(MOD-bp): 81.0 ml Aortic Valve Planimetry: 2.5 cm2 LA A4 area: 23.6 cm2 LAV(MOD-bp) Indexed: 36.5 ml/m2 LAV(MOD-sp2): 89.5 ml LAV(MOD-sp4): 70.3 ml LA dimension(2D): 4.3 cm RA A4 area: 22.1 cm2 Time Measurements MV dec time: 0.25 sec Doppler Measurements & Calculations MV E max scottie: 83.8 cm/sec Lat Peak E' Scottie: 7.6 cm/sec Med Peak E' Scottie: 5.9 cm/sec MV A max scottie: 95.8 cm/sec E/E' lat: 11.0 E/E' med: 14.2 MV E/A: 0.87 Ao V2 max: 319.8 cm/sec AI max scottie: 506.6 cm/sec LV V1 max: 159.0 cm/sec Ao max P.9 mmHg AI max P.7 mmHg LV V1 max P.1 mmHg Ao V2 mean: 214.2 cm/sec AI dec slope: 186.5 cm/sec2 LV V1 mean P.9 mmHg Ao mean P.0 mmHg AI P1/2t: 795.7 msec LV V1 mean: 115.2 cm/sec Ao V2 VTI: 63.7 cm LV V1 VTI: 36.0 cm GINNY(I,D): 2.4 cm2 GINNY(V,D): 2.1 cm2 SV(LVOT): 152.2 ml PA V2 max: 149.4 cm/sec TR max scottie: 225.7 cm/sec TR max P.4 mmHg Interpretation Summary The study was technically difficult. Contrast injection was performed. Left ventricular systolic function is normal. The estimated ejection fraction is 65 %. The left atrium is mildly enlarged. Mild focal mitral valve calcification of the anterior leaflet. Trivial mitral valve insufficiency. Trivial tricuspid valve insufficiency. Moderate focal aortic valve calcification. Aortic valve sclerosis/mild aortic valve stenosis. Trivial aortic valve insufficiency. Right ventricular systolic pressure estimated to be 23 mmHg. There is evidence of diastolic dysfunction. Ordering Physician: Eugenio Amaro Referring Physician: Gavin Pisano Performed By: Sigrid Beltran, RDCS, RVT
== END ==
PROVIDERS: PCP Family Medicine; Referring Provider Internal Medicine Cardiovascular Disease; Visit Provider Internal Medicine Cardiovascular Disease
DX: I34.1 Nonrheumatic mitral (valve) prolapse (principal); I49.3 Ventricular premature depolarization; I44.1 Atrioventricular block, second degree; I35.9 Nonrheumatic aortic valve disorder, unspecified
CPT/HCPCS: 93306; Q9957; A4216; C8929

== ENCOUNTER → 2020-01-16 | Outpatient (CLI) | payer BC, SELFPAY ==
[2019-09-05 09:03] VITALS: BMI 30.9
== END | disposition home or self-care (01) ==
LOC: LABSPEC 12:08
PROVIDERS: PCP Family Medicine; Referring Provider Family Medicine; Visit Provider Family Medicine
DX: Z20.828 Contact with and (suspected) exposure to other viral communicable diseases (principal)
CPT/HCPCS: 87635; U0003

== ENCOUNTER → 2020-01-29 16:12 | Outpatient (CLI) | payer BC, SELFPAY ==
[2019-09-05 09:03] VITALS: BMI 30.9
[2020-01-29 17:50] LABS: Absolute Lymphocyte Count 2.14 X10^3/uL (0.83-4.51); Absolute Neutrophil Count 3.9 X10^3/uL (2.0-7.7); Basophil# 0.03 X10^3/uL; Basophil% 0.4 % (0-1); Eosinophil# 0.21 X10^3/uL; Eosinophils% 3.1 % (0-5); Hematocrit 42.2 % (40-54); Hemoglobin 14.2 g/dL (13.0-16.5); Lymphocyte # 2.14 X10^3/ul (4.0); Lymphocyte % 31.8 % (19-41); Mean Corp Hgb Conc 33.6 g/dL (32-36); Mean Corpuscular Hgb 30.7 pg (27.0-32.0); Mean Corpuscular Volume 91.3 fL (80-94); Mean Platelet Vol. 12.2 fl (6.2-12.0); Monocyte# 0.41 X10^3/uL; Monocyte% 6.1 % (0-10); NRBC Flagged by Analyzer 0 % (0-5); Neutrophil # 3.93 X10^3/uL (2.7-7.7); Neutrophil % 58.3 % (47-70); Platelet Count 221 K/mm3 (150-450); RBC Distribution Width CV 12.4 % (11.6-14.6); RBC Distribution Width SD 40.8 fl (35.1-43.9); Red Blood Count 4.62 M/mm3 (4.6-6.2); White Blood Count 6.7 K/mm3 (4.4-11.0)
[2020-01-29 18:47] LABS: ALB/GLOB Ratio 1.2 RATIO (0.9-2.4); AST(SGOT) 18 U/L (15-37); Alanine Aminotransfer ALT/SGPT 27 U/L (16-61); Albumin, Serum 3.8 g/dL (3.2-5.0); Alkaline Phosphatase 75 U/L (45-117); Anion Gap 6 (5-15); BUN 22 mg/dL (7-18); BUN/Creat Ratio 20.8 RATIO (10-20); Calcium,Total 8.6 mg/dL (8.5-10.1); Chloride 107 mmol/L (98-107); Creatinine, Serum 1.06 mg/dL (0.70-1.30); EST Glomerular Filtration Rate 76 mL/min (>60); Est Glom Filt Rate - Afr Amer 92 mL/min (>60); Ferritin 124 ng/mL (26-388); Globulin 3.2 g/dL (2.2-4.2); Glucose 85 mg/dL (74-106); Sodium Level 142 mmol/L (136-145); Thyroid Stim Hormone (TSH) 2.79 uIU/mL (0.358-3.74)
== END ==
PROVIDERS: PCP Family Medicine; Referring Provider Family Medicine; Visit Provider Family Medicine
DX: I48.91 Unspecified atrial fibrillation (principal); L50.9 Urticaria, unspecified; G25.81 Restless legs syndrome
CPT/HCPCS: 36415; 80053; 82728; 84443; 85025

== ENCOUNTER → 2020-02-26 15:48 | Outpatient (CLI) | payer BC, SELFPAY ==
[2020-01-31 13:32] VITALS: BMI 31.4
[2020-02-26 18:01] LABS: Absolute Lymphocyte Count 1.85 X10^3/uL (0.83-4.51); Absolute Neutrophil Count 3.5 X10^3/uL (2.0-7.7); Basophil# 0.02 X10^3/uL; Basophil% 0.3 % (0-1); Eosinophil# 0.22 X10^3/uL; Eosinophils% 3.7 % (0-5); Hematocrit 40.4 % (40-54); Hemoglobin 13.8 g/dL (13.0-16.5); Lymphocyte # 1.85 X10^3/ul (4.0); Lymphocyte % 31.2 % (19-41); Mean Corp Hgb Conc 34.2 g/dL (32-36); Mean Corpuscular Hgb 30.3 pg (27.0-32.0); Mean Corpuscular Volume 88.8 fL (80-94); Monocyte# 0.34 X10^3/uL; Monocyte% 5.7 % (0-10); NRBC Flagged by Analyzer 0 % (0-5); Neutrophil # 3.49 X10^3/uL (2.7-7.7); Neutrophil % 58.9 % (47-70); Platelet Count 229 K/mm3 (150-450); RBC Distribution Width CV 12.1 % (11.6-14.6); RBC Distribution Width SD 39.5 fl (35.1-43.9); Red Blood Count 4.55 M/mm3 (4.6-6.2); White Blood Count 5.9 K/mm3 (4.4-11.0)
[2020-02-28 14:42] LABS: ANTINUCLEAR ANTIBODIES DIRECT Negative (Negative)
[2020-03-01 06:08] LABS: Immunoglobulin A 119 mg/dL (90-386); Immunoglobulin E 144 IU/mL (6-495); Immunoglobulin G 956 mg/dL (603-1613); Immunoglobulin M 41 mg/dL (20-172)
[2020-03-01 08:12] LABS: Complement CH50 > 60 U/mL (>41)
== END ==
PROVIDERS: PCP Family Medicine; Referring Provider Family Medicine; Visit Provider Family Medicine
DX: L50.9 Urticaria, unspecified (principal); M25.50 Pain in unspecified joint
CPT/HCPCS: 36415; 82784; 82785; 85025; 86038; 86162; 86225; 86235

== ENCOUNTER → 2020-05-20 15:36 | Outpatient (CLI) | payer BC, SELFPAY ==
[2020-05-20 18:01] LABS: ALB/GLOB Ratio 1.2 RATIO (0.9-2.4); AST(SGOT) 18 U/L (15-37); Alanine Aminotransfer ALT/SGPT 29 U/L (16-61); Albumin, Serum 3.8 g/dL (3.2-5.0); Alkaline Phosphatase 88 U/L (45-117); Anion Gap 2 (5-15); BUN 19 mg/dL (7-18); BUN/Creat Ratio 18.4 RATIO (10-20); Calcium,Total 9.4 mg/dL (8.5-10.1); Chloride 105 mmol/L (98-107); Creatinine, Serum 1.03 mg/dL (0.70-1.30); EST Glomerular Filtration Rate 79 mL/min (>60); Est Glom Filt Rate - Afr Amer 95 mL/min (>60); Globulin 3.2 g/dL (2.2-4.2); Glucose 91 mg/dL (74-106); Potassium 4.3 mmol/L (3.5-5.1); Sodium Level 140 mmol/L (136-145)
== END ==
PROVIDERS: PCP Family Medicine; Visit Provider Family Medicine
DX: I10 Essential (primary) hypertension (principal)
CPT/HCPCS: 36415; 80053; 83735

== ENCOUNTER → 2020-07-16 16:28 | Outpatient (CLI) | payer BC, SELFPAY ==
[2020-07-16 17:00] LABS: Bacteria 0 SEEN /hpf (None Seen); Mucous, Urine 0 SEEN /hpf (<or=2+)
[2020-07-16 18:02] LABS: Absolute Lymphocyte Count 2.09 X10^3/uL (0.83-4.51); Absolute Neutrophil Count 3.8 X10^3/uL (2.0-7.7); Basophil# 0.03 X10^3/uL; Basophil% 0.4 % (0-1); Eosinophil# 0.35 X10^3/uL; Eosinophils% 5.2 % (0-5); Hematocrit 42.6 % (40-54); Hemoglobin 14.4 g/dL (13.0-16.5); Lymphocyte # 2.09 X10^3/ul (0.83-4.51); Lymphocyte % 31.2 % (19-41); Mean Corp Hgb Conc 33.8 g/dL (32-36); Mean Corpuscular Hgb 29.4 pg (27.0-32.0); Mean Corpuscular Volume 87.1 fL (80-94); Mean Platelet Vol. 11.7 fl (6.2-12.0); Monocyte# 0.37 X10^3/uL; Monocyte% 5.5 % (0-10); NRBC Flagged by Analyzer 0 % (0-5); Neutrophil # 3.84 X10^3/uL (2.7-7.7); Neutrophil % 57.6 % (47-70); Platelet Count 243 K/mm3 (150-450); RBC Distribution Width SD 38.5 fl (35.1-43.9); Red Blood Count 4.89 M/mm3 (4.6-6.2); White Blood Count 6.7 K/mm3 (4.4-11.0)
[2020-07-16 18:11] LABS: Color, Urine Yellow (Yellow); Glucose, Dipstick Normal (Normal); Ketone-Dipstick Negative (Negative); Leukocyte Esterase-Dipstick Negative /ul (Negative); Nitrite-Dipstick Negative (Negative); Occult Blood-Urine 50 /ul (Negative); Protein-Dipstick 15 mg/dl (Negative); Specific Gravity, Urine 1.025 (1.002-1.030); Urine Bilirubin Dipstick Negative (Negative); Urine Clarity Clear (Clear); Urine Urobilinogen Normal (Normal)
[2020-07-16 18:22] LABS: Red Blood Cells-Urine 0-5 SEEN /hpf (0-5); White Blood Cells 0-5 SEEN /hpf (0-5)
[2020-07-16 18:23] LABS: Squamous Epithelial Cells - UA 0-5 SEEN /hpf (0-5)
[2020-07-16 18:29] LABS: ALB/GLOB Ratio 1.1 RATIO (0.9-2.4); AST(SGOT) 28 U/L (15-37); Alanine Aminotransfer ALT/SGPT 33 U/L (16-61); Albumin, Serum 3.8 g/dL (3.2-5.0); Alkaline Phosphatase 86 U/L (45-117); Anion Gap 7 (5-15); BUN 22 mg/dL (7-18); BUN/Creat Ratio 21.4 RATIO (10-20); CRP 3.87 mg/L (0.0-3.0); Calcium,Total 8.8 mg/dL (8.5-10.1); Chloride 106 mmol/L (98-107); Creatinine, Serum 1.03 mg/dL (0.70-1.30); EST Glomerular Filtration Rate 79 mL/min (>60); Est Glom Filt Rate - Afr Amer 95 mL/min (>60); Globulin 3.5 g/dL (2.2-4.2); Glucose 93 mg/dL (74-106); Protein, Total 7.3 g/dL (6.4-8.2); Sodium Level 140 mmol/L (136-145); Uric Acid 6.4 mg/dL (3.5-7.2)
[2020-07-16 18:36] LABS: Erythrocyte Sedimentation Rate 4 mm/hr (0-20)
[2020-07-16 18:49] LABS: Microalbumin,Random Urine 48.3 mg/L (NO RANGE EST.); Microalbumin:Creatinine Ratio 28.8 mg/g CRE (<30 mg/g CRE)
== END ==
PROVIDERS: PCP Family Medicine; Referring Provider Family Medicine; Visit Provider Family Medicine
DX: R10.9 Unspecified abdominal pain (principal)
CPT/HCPCS: 36415; 80053; 81001; 82043; 82570; 84550; 85025; 85652; 86140

== ENCOUNTER → 2020-07-24 13:51 | Outpatient (CLI) | payer BC, SELFPAY ==
--- NOTE | 2020-07-24 14:01 | CT_ITS ---
STUDY: CT ABDOMEN AND PELVIS WITHOUT CONTRAST REASON FOR EXAM: Male, 60 years old. Right flank pain. TECHNIQUE: Transaxial images were obtained from the dome of the diaphragm to the symphysis pubis without oral contrast, and without intravenous contrast. Sagittal and coronal images were reconstructed. Individualized dose optimization techniques were used for this CT. COMPARISON: 05/26/2018 CT abdomen pelvis. FINDINGS: Partially visualized lower chest: Lung bases unremarkable. Liver: Diffuse steatosis. No focal lesions. Gallbladder and biliary tree: No visible gallstones. No pericholecystic inflammation. No biliary ductal dilation. Pancreas: No pancreatic lesions or inflammation. Spleen: Normal size, no splenic lesions. Calcified granulomas Adrenal glands: No concerning masses. Kidneys and ureters: No hydronephrosis or obstructing renal stones. No concerning masses. No ureteral dilation. Punctate nonobstructing stone midpole calyx left kidney. Bowel: Normal appendix. No obstruction or inflammation of the bowel. Sigmoid colon diverticulosis, no diverticulitis. Urinary bladder: No stones or wall thickening. Reproductive:Normal size prostate. Vascular: No abdominal aortic aneurysm. Retroperitoneal and peritoneal spaces: No ascites or free air. No retroperitoneal lesions. Osseous: No acute osseous abnormality. Abdominal and pelvic wall: No concerning findings. Any findings described in the findings sections and not included in the impression are incidental and do not require imaging follow-up. CT/Abdomen/Pelvis without Cont IMPRESSION: No acute finding. Small nonobstructing stone left kidney. Hepatic steatosis. Sigmoid colon diverticulosis. Electronically Signed: Dannie Shahid MD at 1:54 EDT Tel , Service support ,
== END ==
PROVIDERS: PCP Family Medicine; Referring Provider Family Medicine; Visit Provider Family Medicine
DX: R10.9 Unspecified abdominal pain (principal); Z87.442 Personal history of urinary calculi
CPT/HCPCS: 74176

== ENCOUNTER → 2020-08-07 07:49 | Outpatient (CLI) | payer BC, SELFPAY ==
[2020-08-01 14:56] VITALS: BMI 32.2
--- NOTE | 2020-08-07 07:53 | CDU_ITS ---
Reason For Study: Left carotid bruit Rt. Velocities/BP Lt. Velocities/BP Prox CCA 130.8/23 cm/sec. Prox CCA 123.5/19.4 cm/sec. Mid CCA 107/17.5 cm/sec. Mid CCA 107/17.5 cm/sec. Dist CCA 107/21.2 cm/sec. Dist CCA 90.6/21.2 cm/sec. Prox ICA 80.6/22.8 cm/sec. Prox ICA 74.3/24.8 cm/sec. Mid ICA 80.6/21.6 cm/sec. Mid ICA 94.2/35.8 cm/sec. Dist ICA 92.4/24.8 cm/sec. Dist ICA 82.8/28.9 cm/sec. Rt. ICA/CCA = 0.86. Lt. ICA/CCA = 0.88. Prox ECA 137.4/18.9 cm/sec. Prox ECA 86.3/12.7 cm/sec. Rt. Vert. 40.2/8.1 cm/sec. Lt. Vert. 55.4/12.8 cm/sec. Right Extracranial There is intimal thickening but no significant atherosclerotic plaque noted in the right common carotid artery. There is intimal thickening but no significant atherosclerotic plaque noted in the right internal carotid artery. There is intimal thickening but no significant atherosclerotic plaque noted in the right external carotid artery. Antegrade flow is noted in the right vertebral artery. Left Extracranial There is intimal thickening but no significant atherosclerotic plaque noted in the left common carotid artery. There is heterogeneous, irregular atherosclerotic plaque noted in the left internal carotid artery. There is intimal thickening but no significant atherosclerotic plaque noted in the left external carotid artery. Antegrade flow is noted in the left vertebral artery. VL/Carotid Duplex Ultrasound Interpretation Summary Intimal thickening at the proximal right internal carotid artery with less than 50% stenosis Less than 50% stenosis right external carotid artery Mild heterogenous plaque at the proximal left internal carotid artery with less than 50% stenosis Less than 50% stenosis left external carotid artery Patent and antegrade vertebral arteries bilaterally Ordering Physician: Mansi Germain Referring Physician: Gavin Pisano MD Performed By: Tawanna Jennings RVT and Student
== END ==
PROVIDERS: PCP Family Medicine; Referring Provider Physician Assistant Medical; Visit Provider Physician Assistant Medical
DX: R09.89 Other specified symptoms and signs involving the circulatory and respiratory systems (principal)
CPT/HCPCS: 93880

== ENCOUNTER 2021-04-07 07:10 | Outpatient (CLI) | payer BC, SELFPAY ==
[2021-04-07 10:15] LABS: Erythrocyte Sedimentation Rate 3 mm/hr (0-20)
[2021-04-07 10:16] LABS: Absolute Lymphocyte Count 2.03 X10^3/uL (0.83-4.51); Basophil# 0.04 X10^3/uL; Basophil% 0.7 % (0-1); Eosinophil# 0.53 X10^3/uL; Eosinophils% 8.8 % (0-5); Hematocrit 43.1 % (40-54); Hemoglobin 15.4 g/dL (13.0-16.5); Lymphocyte # 2.03 X10^3/ul (0.83-4.51); Lymphocyte % 33.6 % (19-41); Mean Corp Hgb Conc 35.7 g/dL (32-36); Mean Corpuscular Hgb 31.9 pg (27.0-32.0); Mean Corpuscular Volume 89.2 fL (80-94); Mean Platelet Vol. 12.5 fl (6.2-12.0); Monocyte# 0.47 X10^3/uL; Monocyte% 7.8 % (0-10); NRBC Flagged by Analyzer 0 % (0-5); Neutrophil # 2.96 X10^3/uL (2.7-7.7); Neutrophil % 48.8 % (47-70); Platelet Count 199 K/mm3 (150-450); RBC Distribution Width CV 12.5 % (11.6-14.6); RBC Distribution Width SD 41.1 fl (35.1-43.9); Red Blood Count 4.83 M/mm3 (4.6-6.2); White Blood Count 6.1 K/mm3 (4.4-11.0)
[2021-04-07 10:33] LABS: ALB/GLOB Ratio 1.1 RATIO (0.9-2.4); AST(SGOT) 17 U/L (15-37); Alanine Aminotransfer ALT/SGPT 35 U/L (16-61); Albumin, Serum 3.7 g/dL (3.2-5.0); Alkaline Phosphatase 79 U/L (45-117); BUN 20 mg/dL (7-18); BUN/Creat Ratio 20.8 RATIO (10-20); Calcium,Total 8.7 mg/dL (8.5-10.1); Chloride 105 mmol/L (98-107); Cholesterol 176 mg/dL (200); Creatinine, Serum 0.96 mg/dL (0.70-1.30); EST Glomerular Filtration Rate 85 mL/min (>60); Est Glom Filt Rate - Afr Amer 103 mL/min (>60); Globulin 3.4 g/dL (2.2-4.2); Glucose 95 mg/dL (74-106); Potassium 4.2 mmol/L (3.5-5.1); Protein, Total 7.1 g/dL (6.4-8.2); Sodium Level 137 mmol/L (136-145); Triglycerides 176 mg/dL
[2021-04-07 10:34] LABS: Anion Gap 6 (5-15); CRP 5.57 mg/L (0.0-3.0); High Density Lipoprotein 42 mg/dL; Very Low Density Lipoprotein 35 mg/dL (5-40)
[2021-04-08 14:32] LABS: ANTINUCLEAR ANTIBODIES DIRECT Negative (Negative)
== END 2021-04-07 23:59 | disposition home or self-care (01) ==
LOC: MTLAB 07:12
PROVIDERS: PCP Family Medicine; Referring Provider Family Medicine; Visit Provider Family Medicine
DX: Z00.00 Encounter for general adult medical examination without abnormal findings (principal); M13.0 Polyarthritis, unspecified
CPT/HCPCS: 36415; 80053; 80061; 85025; 85652; 86038; 86140